=== PATIENT | female | born 1970 | race Caucasian/White ===

== ENCOUNTER 2017-06-15 06:31 | Day surgery (SDC) | payer OTHER ==
[~2017-06-15] VITALS: Ht 167.6 cm; Wt 77.1 kg
[2017-06-15 07:08] VITALS: BP 107/72
[2017-06-15 10:38] VITALS: BP 121/75
== END 2017-06-15 10:20 | disposition home or self-care (01) ==
LOC: DS 06:31
PROVIDERS: Anesthesiology Pain Medicine
PROC: BR141ZZ Fluoroscopy of Cervical Facet Joint(s) using Low Osmolar Contrast (ICD-10-PCS; 2017-06-15)
PROC: 3E0T3TZ Introduction of Destructive Agent into Peripheral Nerves and Plexi, Percutaneous Approach (ICD-10-PCS; principal; 2017-06-15 07:30)
DX: M47.12 Other spondylosis with myelopathy, cervical region (principal); G89.4 Chronic pain syndrome; Z68.30 Body mass index [BMI] 30.0-30.9, adult
CPT/HCPCS: 77003; J1100; J1885; J2001; J2250; J3490; J7040; Q0092

== ENCOUNTER 2017-09-07 06:49 | Day surgery (SDC) | payer OTHER ==
[~2017-09-07] VITALS: Ht 167.6 cm; Wt 77.1 kg
[2017-09-07 07:28] VITALS: BP 118/70
[2017-09-07 15:30] VITALS: BP 114/63
== END 2017-09-07 10:05 | disposition home or self-care (01) ==
LOC: DS 06:49 → OR 08:30 → DS 10:05
PROVIDERS: Anesthesiology Pain Medicine
PROC: BR141ZZ Fluoroscopy of Cervical Facet Joint(s) using Low Osmolar Contrast (ICD-10-PCS; 2017-09-07)
PROC: 3E0T3TZ Introduction of Destructive Agent into Peripheral Nerves and Plexi, Percutaneous Approach (ICD-10-PCS; principal; 2017-09-07 08:30)
DX: M47.12 Other spondylosis with myelopathy, cervical region (principal); G89.4 Chronic pain syndrome; Z68.31 Body mass index [BMI] 31.0-31.9, adult
CPT/HCPCS: 77003; J2250; J3010; J7040; Q0092